=== PATIENT | female | born 1990 | race Two or more races ===

== ENCOUNTER 2021-10-11 12:30 | Emergency (ER) | payer OTHER ==
[~2021-10-11] VITALS: Ht 157.5 cm; Wt 53.5 kg
== END 2021-10-11 16:46 | disposition home or self-care (01) ==
LOC: ER 12:30
DX: T20.02XA Burn of unspecified degree of lip(s), initial encounter (principal); X10.1XXA Contact with hot food, initial encounter; Y93.89 Activity, other specified; Y92.89 Other specified places as the place of occurrence of the external cause; Y99.9 Unspecified external cause status; R22.0 Localized swelling, mass and lump, head